=== PATIENT | male | born 1990 | race African-American/Black ===

== ENCOUNTER 2017-06-18 03:25 | Emergency (ER) | payer OTHER ==
[~2017-06-18] VITALS: Ht 175.3 cm; Wt 72.6 kg
[2017-06-18] MEDS ORDERED: HYDROCODONE-AP1 EAC6 PO (04:38)
[2017-06-18] MEDS ORDERED: NAPROSYN500 MG PO (04:38)
[2017-06-18 05:36] VITALS: BP 127/90
== END 2017-06-18 05:36 | disposition home or self-care (01) ==
LOC: ER 03:25
DX: S43.004A Unspecified dislocation of right shoulder joint, initial encounter (principal); Y04.0XXA Assault by unarmed brawl or fight, initial encounter; Y93.89 Activity, other specified; Y92.89 Other specified places as the place of occurrence of the external cause; Y99.8 Other external cause status